=== PATIENT | female | born 1960 | race Caucasian/White ===

== ENCOUNTER → 2019-03-22 | Outpatient (CLI) | payer MEDICAID ==
[~2019-03-22] MED LIST: REGADENOSON 0.4 MG/5 ML SYR (LEXISCAN) IV ONE
[2019-03-22] MEDS: CATHETER FLUSH 10 ML SYR IV PRN ×2 (07:46→09:10)
[2019-03-22 09:08] VITALS: BP 118/86
--- NOTE | 2019-03-22 13:40 | STRESS TEST ---
DATE OF SERVICE: 03/22/2019 LEXISCAN MYOVIEW STRESS TEST REPORT REFERRING PHYSICIAN: Dr. Samara Brandt and Rodrigo Enamorado, [facility]. Baseline heart rate is 77, baseline blood pressure 129/96. Baseline EKG is sinus rhythm with no ischemic changes. In summary, the patient was injected with 10.85 mCi of technetium-99 Myoview and the resting images were obtained. Then, she received 0.4 mg of Lexiscan followed by 30.0 mCi of technetium-99 Myoview. The patient had mild shortness of breath, responded to Proventil treatment. Otherwise, no chest pain was reported. During recovery, heart rate and blood pressure continued to be stable. The resting and stress images were reviewed and compared in the short axis, horizontal long axis, and vertical long axis views. Review of the images showed breast attenuation with mild decreased uptake involving the anteroseptum with mild reversibility. SSS is 3, SDS 3. No significant ischemia or infarction was noted. TID value 1.01. On the gated images, the left ventricle appeared to be in normal size with normal contractility. Calculated ejection fraction 65%. CONCLUSION: 1. The patient tolerated Lexiscan well. 2. Breast attenuation with typical female pattern. No significant ischemia or infarction on SPECT images. 3. Normal left ventricular size with normal contractility. Calculated ejection fraction 65%. Job ID: [id number] DocumentID: [id number] Dictated Date: 03/22/2019 11:29:02 [employer] Manager Date: 03/22/2019 13:39:32 Dictated By: HERMILA HUMMEL MD
== END ==
LOC: CARD 07:32
PROVIDERS: ATTEND Internal Medicine Cardiovascular Disease
DX: I08.2 Rheumatic disorders of both aortic and tricuspid valves (principal); R55 Syncope and collapse; Z72.0 Tobacco use
CPT/HCPCS: 78452; 93017

== ENCOUNTER → 2022-02-25 | Outpatient (CLI) | payer MEDICAID ==
[~2022-02-25] MED LIST changes: -REGADENOSON 0.4 MG/5 ML SYR (LEXISCAN) IV ONE; +RT-ALBUTEROL SULF 2.5 MG/3 ML PRE-MIX VIAL INH ONE
== END ==
LOC: RT 14:36
PROVIDERS: ATTEND Nurse Practitioner Family
DX: J44.9 Chronic obstructive pulmonary disease, unspecified (principal)
CPT/HCPCS: 94060

== ENCOUNTER → 2022-04-03 | Outpatient (CLI) | payer MEDICAID ==
[~2022-04-03] MED LIST changes: +CATHETER FLUSH 10 ML SYR IV PRN; +HOLD METFORMIN - RECEIVED CONTRAST 20 ML VIAL IV SCH; +IOHEXOL 350 MG/ML 100 ML (OMNIPAQUE 350) VIAL IV ONE; +NS 100 ML (IVPB) BAG IV ONE; -RT-ALBUTEROL SULF 2.5 MG/3 ML PRE-MIX VIAL INH ONE
--- NOTE | 2022-04-03 14:26 | Diagnostic Imaging Report ---
EXAMINATION: CT abdomen with and without intravenous contrast. TECHNIQUE: Precontrast acquisitions were acquired through the abdomen . Multiple contiguous axial images were obtained through the abdomen after the administration of intravenous contrast. All CT scans use one or more of the following dose optimizing techniques: automated exposure control, MA and/or KvP adjustment based on patient size and exam type or iterative reconstruction. HISTORY: RIGHT RENAL MASS COMPARISON: None available. FINDINGS: Lung bases: Bibasilar dependent atelectasis. Solid organs: The liver is normal without focal lesion. The gallbladder is normal. There is no biliary ductal dilation. Pancreas is normal. Spleen is normal. Adrenal glands are normal. There is a heterogeneously enhancing 5.2 x 5.0 cm mass within the anterior right mid kidney. There may be extension into the renal pelvis. No obvious invasion of the renal vein. There are additional subcentimeter right renal hypoattenuating lesions that may represent cysts. There is no hydronephrosis. The left kidney is unremarkable. Bowel: No bowel obstruction. Peritoneum: There is no intraperitoneal free fluid or free air. No suspicious lymphadenopathy. Vasculature: Calcification of the aorta without aneurysm. Musculoskeletal: There is grade 2 anterolisthesis of L5 on S1 secondary to facet hypertrophy. IMPRESSION: 1. A 5.2 cm heterogeneous enhancing mass within the anterior right kidney which is compatible with renal neoplasm. 2. There may be extension into the renal pelvis without obvious involvement of the renal vein. 3. No findings of metastatic disease within the visualized abdomen. Dictated by: Dictated on workstation # [id number]
== END ==
LOC: RAD 12:45
PROVIDERS: ATTEND Student in an Organized Health Care Education/Training Program
DX: G62.9 Polyneuropathy, unspecified (principal); N28.89 Other specified disorders of kidney and ureter; J98.11 Atelectasis
CPT/HCPCS: 74170